=== PATIENT | male | born 1965 | race American Indian/Alaskan Native ===

== ENCOUNTER 2018-08-08 02:34 | Observation (INO) | payer BC ==
[2018-08-08] MEDS ORDERED: Sodium Chloride 0.9% 1,000 ML ONE (03:08)
[2018-08-08 03:11] LABS: BASO # 0.1 K/uL (0.0-0.2); EOS # 0.1 K/uL (0.0-0.7); LYMPH # 2.5 K/uL (1.0-4.3); LYMPH % 26.9 % (20.0-40.0); MEAN CELL VOLUME 86.6 fL (80.0-94.0); MEAN CORPUSCULAR HEMOGLOBIN 28.4 pg (27.0-31.0); MEAN CORPUSCULAR HGB CONC 32.8 g/dL (33.0-37.0); MEAN PLATELET VOLUME 7.6 fL (7.2-11.7); MONO # 0.9 K/uL (0.0-0.8); MONO % 9.7 % (0.0-10.0); NEUT # 5.7 K/uL (1.8-7.0); NEUT % 61.4 % (50.0-75.0); RBC 5.26 Mil/uL (4.40-5.90); RED CELL DISTRIBUTION WIDTH 13.3 % (11.5-14.5); WHITE BLOOD COUNT 9.2 K/uL (4.8-10.8)
[2018-08-08] MEDS ORDERED: Sodium Chloride 0.9% 1,000 ML IV ONE ×2 (03:11→13:01)
[2018-08-08 03:19] LABS: INR 1.2
[2018-08-08 03:23] LABS: ALB/GLOB RATIO 1.5 (1.0-2.1); ALBUMIN 4.7 g/dL (3.5-5.0); ALT/SGPT 49 U/L (21-72); AST/SGOT 39 U/L (17-59); BLOOD UREA NITROGEN 14 mg/dL (9-20); GFR NON-AFRICAN AMERICAN > 60; LIPASE 144 U/L (23-300)
[2018-08-08] MEDS ORDERED: Morphine 4 MG/ML VIAL IV ONE (04:24)
[2018-08-08] MEDS ORDERED: Morphine 4 MG/ML VIAL ONE (04:54)
[2018-08-08] MEDS ORDERED: Iodixanol 320 MG/ML 100 ML BOTTLE IV ONE (05:03)
--- NOTE | 2018-08-08 05:18 | C.PDOC ---
History Of Present Illness 53 year old male presents to the ED for evaluation of diffuse abdominal pain associated with nausea and vomiting which began around 3 days ago. Patient reports diffuse abdominal pain, but also points to his right lower quadrant. Patient states his last bowel movement was today. Patient reports he has his gallbladder taken out, but this pain feels similar to when he previously needed surgery. Patient has not taken anything for pain. He denies fever, chills. <Jalyn Campos - Last Filed: 08/08/18 06:44> History Per: Patient History/Exam Limitations: no limitations Onset/Duration Of Symptoms: Days (3) Current Symptoms Are (Timing): Still Present Location Of Pain/Discomfort: Diffuse, RLQ Quality Of Discomfort: "Pain" Associated Symptoms: Nausea, Vomiting. denies: Fever, Chills <Jalyn Campos - Last Filed: 08/08/18 06:44> <Blossom Queen - Last Filed: 08/08/18 07:29> Time Seen by Provider: 08/08/18 03:20 Chief Complaint (Nursing): Abdominal Pain Past Medical History Reviewed: Historical Data, Nursing Documentation, Vital Signs Vital Signs: Last Vital Signs Temp 97.9 F 08/08/18 02:39 Pulse 69 08/08/18 05:07 Resp 16 08/08/18 05:07 BP 119/79 08/08/18 05:07 Pulse Ox 97 08/08/18 05:07 - Medical History PMH: Anxiety, Depression, HIV Surgical History: Cholecystectomy Family History: States: Unknown Family Hx - Social History Hx Alcohol Use: Yes Hx Substance Use: No - Immunization History Hx Tetanus Toxoid Vaccination: Yes Hx Influenza Vaccination: Yes Hx Pneumococcal Vaccination: Yes <Jalyn Campos - Last Filed: 08/08/18 06:44> Vital Signs: Last Vital Signs Temp 98 F 08/08/18 06:24 Pulse 67 08/08/18 06:24 Resp 18 08/08/18 06:24 BP 122/89 08/08/18 06:24 Pulse Ox 97 08/08/18 06:44 <Blossom Queen - Last Filed: 08/08/18 07:29> Review Of Systems Constitutional: Negative for: Fever, Chills Gastrointestinal: Positive for: Nausea, Vomiting, Abdominal Pain (diffuse, right lower quadrant ) <Jalyn Campos - Last Filed: 08/08/18 06:44> Physical Exam - Physical Exam Appears: Non-toxic, No Acute Distress Skin: Normal Color, Warm, Dry Head: Atraumatic, Normacephalic Eye(s): bilateral: Normal Inspection Oral Mucosa: Moist Neck: Supple Chest: Symmetrical, No Deformity, No Tenderness Cardiovascular: Rhythm Regular, No Murmur Respiratory: Normal Breath Sounds, No Rales, No Rhonchi, No Wheezing Gastrointestinal/Abdominal: Soft, Tenderness (diffuse ), No Guarding, No Rebound, Other (bowel sounds ) Extremity: Normal ROM, Capillary Refill (less than 2 seconds ) Neurological/Psych: Normal Speech, Normal Cognition <Jalyn Campos - Last Filed: 08/08/18 06:44> ED Course And Treatment - Laboratory Results Result Diagrams: 08/08/18 03:08 08/08/18 03:08 Lab Results: PT 13.0 SECONDS (9.7-12.2) H 08/08/18 03:08 INR 1.2 08/08/18 03:08 APTT 33 SECONDS (21-34) 08/08/18 03:08 Total Bilirubin 0.6 mg/dL (0.2-1.3) 08/08/18 03:08 AST 39 U/L (17-59) 08/08/18 03:08 ALT 49 U/L (21-72) 08/08/18 03:08 Alkaline Phosphatase 78 U/L (38-126) 08/08/18 03:08 Total Protein 7.8 g/dL (6.3-8.3) 08/08/18 03:08 Albumin 4.7 g/dL (3.5-5.0) 08/08/18 03:08 Globulin 3.1 gm/dL (2.2-3.9) 08/08/18 03:08 Albumin/Globulin Ratio 1.5 (1.0-2.1) 08/08/18 03:08 Lipase 144 U/L (23-300) 08/08/18 03:08 O2 Sat by Pulse Oximetry: 97 (on RA) Pulse Ox Interpretation: Normal - CT Scan/US CT A/P Other Rad Studies (CT/US): Read By Radiologist, Radiology Report Reviewed CT/US Interpretation: CT SCAN OF THE ABDOMEN AND PELVIS WITH CONTRAST. CLINICAL HISTORY: Onset of RLQ and lower pelvic pain nausea, diarrhea Eval for appendicitis (Hx). TECHNIQUE: Multiple axial and coronal CT images were obtained through the abdomen and pelvis after administration of intravenous contrast material. COMMENTS: Enlarged appendix measuring 1.4 cm. Impacted appendicolith at the base of the appendix. Surrounding inflammatory fat stranding. Bilateral basilar hypoventilatory pulmonary changes. The liver is of uniform attenuation without mass or defect. There is no intra or extrahepatic biliary ductal dilatation. The spleen is normal. The gallbladder is surgically absent. The pancreas is of normal contour and attenuation characteristics. There is no evidence of adrenal mass. Both kidneys demonstrate prompt and equal nephrograms. The kidneys are normal in size, shape and configuration. There is no evidence of renal or ureteral mass. No renal or ureteral calculi are identified. There is no hydroureter or hydronephrosis. No evidence for appendicitis. There is no bowel wall thickening. No evidence for small or large bowel obstruction. There is no evidence of abdominal ascites or lymphadenopathy. There is no evidence of intrinsic or extrinsic bladder mass. There is no pelvic ascites or lymphadenopathy. Images of the lung bases show no evidence of pleural or parenchymal mass. There are no pleural effusions. The bony structures are free of lytic or blastic lesions. IMPRESSION: Uncomplicated acute appendicitis without perforation or abscess formation. <Jalyn Campos - Last Filed: 08/08/18 06:44> - Laboratory Results Result Diagrams: 08/08/18 03:08 08/08/18 03:08 Lab Results: PT 13.0 SECONDS (9.7-12.2) H 08/08/18 03:08 INR 1.2 08/08/18 03:08 APTT 33 SECONDS (21-34) 08/08/18 03:08 Total Bilirubin 0.6 mg/dL (0.2-1.3) 08/08/18 03:08 AST 39 U/L (17-59) 08/08/18 03:08 ALT 49 U/L (21-72) 08/08/18 03:08 Alkaline Phosphatase 78 U/L (38-126) 08/08/18 03:08 Total Protein 7.8 g/dL (6.3-8.3) 08/08/18 03:08 Albumin 4.7 g/dL (3.5-5.0) 08/08/18 03:08 Globulin 3.1 gm/dL (2.2-3.9) 08/08/18 03:08 Albumin/Globulin Ratio 1.5 (1.0-2.1) 08/08/18 03:08 Lipase 144 U/L (23-300) 08/08/18 03:08 <Blossom Queen - Last Filed: 08/08/18 07:29> Medical Decision Making Medical Decision Making: Progress: Bloodwork, Abdomen XR, CT A/P ordered and reviewed. Morphine IVP, Zofran IVP and IV Fluids given. CT scan reviewed, shows uncomplicated acute appendicitis without perforation or abscess formation. Case discussed with surgical dental assistant, who will evaluate the patient at bedside. <Jalyn Campos - Last Filed: 08/08/18 06:44> Disposition <Jalyn Campos - Last Filed: 08/08/18 06:44> <Blossom Queen - Last Filed: 08/08/18 07:29> - Disposition Forms: [facility] (Czech) - Scribe Statement The provider has reviewed the documentation as recorded by the Scribe (Miri Alexandre) Provider Attestation: All medical record entries made by the Scribe were at my direction and personally dictated by me. I have reviewed the chart and agree that the record accurately reflects my personal performance of the history, physical exam, medical decision making, and the department course for this patient. I have also personally directed, reviewed, and agree with the discharge instructions and disposition. <Jalyn Campos - Last Filed: 08/08/18 06:44> Addendum Addendum: 08/08/18 07:[address] Hilario for admisison to his service - acute appendicitis. <Blossom Queen - Last Filed: 08/08/18 07:29>
[2018-08-08] MEDS ORDERED: Piperacill/Tazo 2.25gm in Dex 2.25 GM/50 ML BAG IVPB STA (06:48)
[2018-08-08] MEDS ORDERED: Piperacillin/Tazobact 3.375 gm 100 ML IVPB ONE ×2 (06:52→11:48)
--- NOTE | 2018-08-08 07:40 | CP.PCM.HP ---
History of Present Illness - History of Present Illness History of Present Illness: SURGERY H&P NOTE FOR DR. CHAUDHARY 53M presents with abdominal pain. Patients state pain started on Wednesday and pain was more generalized. He states the pain has gotten worse and is more localized to the right lower quadrant. He admits to nausea and vomiting. He admits to anorexia. States he has not eaten since yesterday morning. Patient denies fevers, admits to chills. PMH: Depression, bipolar, HIV PSH: Lap Cholecystectomy Social: denies tobacco, admits to alcohol socially, denies illicit drugs Allergies: NKDA Present on Admission - Present on Admission Any Indicators Present on Admission: No Past Patient History - Infectious Disease Hx of Infectious Diseases: None - Past Social History Smoking Status: Never Smoked - HEMATOLOGICAL/ONCOLOGICAL Hx Human Immunodeficiency Virus (HIV): Yes - PSYCHIATRIC Hx Anxiety: Yes Hx Depression: Yes Hx Substance Use: No - SURGICAL HISTORY Hx Cholecystectomy: Yes - ANESTHESIA Hx Anesthesia: Yes Hx Anesthesia Reactions: No Hx Malignant Hyperthermia: No Meds Allergies/Adverse Reactions: Allergies Allergy/AdvReac Type Severity Reaction Status Date / Time No Known Allergies Allergy Unverified 08/08/18 02:44 Physical Exam - Constitutional Appears: Non-toxic, No Acute Distress - Eye Exam Eye Exam: EOMI, PERRL - ENT Exam ENT Exam: Mucous Membranes Moist - Respiratory Exam Respiratory Exam: Clear to Auscultation Bilateral, NORMAL BREATHING PATTERN - Cardiovascular Exam Cardiovascular Exam: REGULAR RHYTHM, +S1, +S2 - GI/Abdominal Exam GI & Abdominal Exam: Rebound, Soft, Tenderness (RLQ). absent: Distended, Firm, Guarding, Rigid - Extremities Exam Extremities exam: Negative for: pedal edema, tenderness - Neurological Exam Neurological exam: Alert, Oriented x3 - Psychiatric Exam Psychiatric exam: Normal Affect, Normal Mood - Skin Skin Exam: Dry, Intact, Normal Color, Warm Results - Vital Signs Recent Vital Signs: Last Vital Signs Temp 98 F 08/08/18 06:24 Pulse 67 08/08/18 06:24 Resp 18 08/08/18 06:24 BP 122/89 08/08/18 06:24 Pulse Ox 97 08/08/18 06:44 - Labs Result Diagrams: 08/08/18 03:08 08/08/18 03:08 Labs: Laboratory Results - last 24 hr 08/08/18 08/08/1819 03:08 03:08 03:08 WBC 9.2 RBC 5.26 Hgb 15.0 Hct 45.5 MCV 86.6 MCH 28.4 MCHC 32.8 L RDW 13.3 Plt Count 207 MPV 7.6 Neut % (Auto) 61.4 Lymph % (Auto) 26.9 Campbell % (Auto) 9.7 Eos % (Auto) 1.0 Baso % (Auto) 1.0 Neut # (Auto) 5.7 Lymph # (Auto) 2.5 Campbell # (Auto) 0.9 H Eos # (Auto) 0.1 Baso # (Auto) 0.1 PT 13.0 H INR 1.2 APTT 33 Sodium 133 Potassium 4.2 Chloride 96 L Carbon Dioxide 29 Anion Gap 12 BUN 14 Creatinine 1.1 Est GFR ( Amer) > 60 Est GFR (Non-Af Amer) > 60 Random Glucose 121 H Calcium 10.0 Phosphorus 3.6 Magnesium 1.9 Total Bilirubin 0.6 AST 39 ALT 49 Alkaline Phosphatase 78 Total Protein 7.8 Albumin 4.7 Globulin 3.1 Albumin/Globulin Ratio 1.5 Lipase 144 Assessment & Plan - Assessment and Plan (Free Text) Assessment: 53M with acute appendicitis Plan: NPO IVF Anti emetic Pain control Antibiotics Plan for OR today in afternoon Discussed with Dr. Yanelis Aggarwal, PGY3
[2018-08-08] MEDS: HYDROmorphone 0.5 mg/0.5 ml ISec IVP PRN ×2 (09:11→17:09)
[2018-08-08] MEDS ORDERED: Bupivacaine 0.5%/Epi 1:200,000 (10 ML SOL) ONE (11:47)
[2018-08-08] MEDS ORDERED: Midazolam 2 MG/2 ML VIAL ONE (12:08)
[2018-08-08] MEDS ORDERED: Propofol 10 mg/ml Inj (20 ML) ONE (12:08)
[2018-08-08] MEDS: TAZO IVPB SCH ×2 (12:15→18:43)
[2018-08-08] MEDS: PIPERACILL IVPB SCH ×2 (12:15→18:43)
[2018-08-08] MEDS: DEX IVPB SCH ×2 (12:15→18:43)
[2018-08-08] MEDS ORDERED: Neostigmine 1:1000 (1 mg/ml) Inj ONE (12:47)
[2018-08-08] MEDS ORDERED: Lactated Ringer's 1,000 ML IV ONE (13:01)
[2018-08-08] MEDS ORDERED: HYDROmorphone 0.5 mg/0.5 ml ISec IVP PRN (13:03)
--- NOTE | 2018-08-08 13:05 | PCM.SURG1 ---
Surgeon's Initial Post Op Note - Surgeon's Notes Surgeon: Dr. Hilario Civil Service Clerk: Dr. Meredith PGY4 Type of Anesthesia: General Endo Pre-Operative Diagnosis: Acute appendicitis Operative Findings: Acute appendicitis Post-Operative Diagnosis: Acute appendicitis Operation Performed: Laparoscopic Appendectomy Specimen/Specimens Removed: appendix Estimated Blood Loss: EBL {In ML}: 5 Blood Products Given: N/A Drains Used: No Drains Post-Op Condition: Good Date of Surgery/Procedure: 08/08/18 Time of Surgery/Procedure: 13:04
--- NOTE | 2018-08-08 14:03 | CT ---
Date of service: 08/08/2018 PROCEDURE: CT abdomen and pelvis 08/08/2018 HISTORY: Right lower quadrant abdominal pain. COMPARISON: None. TECHNIQUE: Contiguous axial images of the abdomen and pelvis performed following intravenous injection of approximately 100 cc Visipaque 320 contrast material. Additional 2D sagittal and coronal reformats generated. Radiation dose: Total exam DLP = 1265.02 mGy-cm. This CT exam was performed using one or more of the following dose reduction techniques: Automated exposure control, adjustment of the mA and/or kV according to patient size, and/or use of iterative reconstruction technique. FINDINGS: LOWER THORAX: Mild passive/dependent type atelectasis both posterior lower lung garcia. Minimal scarring seen in the left region. Heart size within range of normal. No significant pericardial effusion. There is a small hiatal hernia. LIVER: Liver is upper limits of normal/borderline enlarged measuring approximately 19 cm in CC dimension. Mild diffuse fatty hepatic infiltration. No obvious hepatic mass collection or calcification. Portal and splenic veins are opacified. GALLBLADDER AND BILE DUCTS: Cholecystectomy PANCREAS: Pancreas appears unremarkable. SPLEEN: U spleen exhibits normal size and attenuation pattern. Small splenule is seen along the just anterior and inferior to the main body of the spleen. ADRENALS: No adrenal lesions. KIDNEYS AND URETERS: Kidneys demonstrate symmetric no evidence of nephrolithiasis or hydronephrosis. BLADDER: Urinary bladder is incompletely distended. No evidence of intraluminal urinary bladder calculi. REPRODUCTIVE: Unremarkable as visualized. APPENDIX: There are several apparent appendicolith within the proximal/mid appendiceal lumen with wall thickening and surrounding infiltration and probably a small amount of fluid. Findings consistent with acute appendicitis. BOWEL: Evaluation of the bowel is limited due to the lack of oral contrast material. Stomach is incompletely distended with food debris liquid and air. Visualized loops of small bowel exhibit normal contour and caliber. No evidence of acute mechanical small bowel obstruction. Moderate amount of stool seen within the cecum and at ascending colon. The remaining colon is relatively collapsed with slight thick-walled appearance which is felt to be in part due to incomplete distention and possibly some muscular hypertrophy however submucosal fatty deposition secondary to chronic inflammation not excluded. There also appears to be few scattered colonic diverticula. No definitive radiographic evidence of acute diverticulitis seen at this time. PERITONEUM: Unremarkable. No fluid collection. No free air. Small fat containing umbilical hernia. Small bilateral fat containing inguinal hernias. LYMPH NODES: There are multiple small mesenteric lymph nodes with a few scattered retroperitoneal lymph nodes nonspecific. Findings could be reactive. VASCULATURE: Unremarkable. No aortic aneurysm. No aortic atherosclerotic calcification or mural plaque present. BONES: Minor multilevel degenerative spondylosis of the lower thoracic and lumbar spine. There is a small bone island or osteoma proximal left femur. OTHER FINDINGS: None. IMPRESSION: Several appendicoliths within the appendiceal lumen with wall thickening and surrounding infiltration/fluid consistent with acute appendicitis. Borderline hepatomegaly. Borderline hepatomegaly. Mild fatty hepatic infiltration. Cholecystectomy. See above discussion for additional details and findings
--- NOTE | 2018-08-08 14:05 | RAD ---
Date of service: 08/08/2018 HISTORY: Unspecified abdominal pain. Duration of symptoms: Unknown COMPARISON: None available. TECHNIQUE: 1 view obtained. FINDINGS: BOWEL: Normal. No obstruction. No free air. BONES: Normal. OTHER FINDINGS: None. IMPRESSION: Unremarkable study.
[2018-08-08] MEDS: Sodium Chloride 0.9% 1,000 ML IV SCH (14:30)
[2018-08-08 17:20] VITALS: RESP 20
[2018-08-09] MEDS: HYDROmorphone 0.5 mg/0.5 ml ISec IVP PRN
[2018-08-09] MEDS: DEX IVPB SCH ×2 (00:55→06:00)
[2018-08-09] MEDS: PIPERACILL IVPB SCH ×2 (00:55→06:00)
[2018-08-09] MEDS: Sodium Chloride 0.9% 1,000 ML IV SCH ×3 (00:55→11:26)
[2018-08-09] MEDS: TAZO IVPB SCH ×2 (00:55→06:00)
--- NOTE | 2018-08-09 02:14 | OP ---
PROCEDURE DATE: 08/08/2018 SURGEON: Renato Hilario MD ANIMAL BEHAVIORIST: Saranya Meredith DO, PGY-4. PREOPERATIVE DIAGNOSIS: Acute appendicitis. POSTOPERATIVE DIAGNOSIS: Acute appendicitis. PROCEDURE: Laparoscopic appendectomy. INDICATION FOR PROCEDURE: The patient is a 53-year-old male who presented to the hospital with right lower quadrant abdominal pain of three days' duration. On CT scan was found to have acute appendicitis and was taken to the operating room. DESCRIPTION OF PROCEDURE: The patient was placed in the operating table in a supine position. General anesthesia was induced. Time-out was completed verifying the correct patient, procedure, site, and positioning prior to beginning the procedure. The abdomen was prepped and draped in the usual sterile fashion. An incision was made vertically just above the umbilicus. The fascia was elevated and the Veress needle was inserted. The abdomen was then insufflated with carbon dioxide to a pressure of 15 mmHg. The patient tolerated the insufflation well. A 12-mm trocar was then inserted using the Visiport technique. Laparoscope was inserted and the abdomen was inspected. No injuries from initial trocar placement were noted. Under direct visualization, two additional 5-mm trocars were then placed in the following locations; one in the left lower quadrant of the abdomen and additional in the suprapubic region. Care was taken to avoid any injuries to the bladder or inferior epigastric vessels. The table was placed in the Trendelenburg position with the right side elevated. The cecum was gently grasped with an atraumatic grasper and the small bowel gently manipulated away from the region of the appendix. The appendix was visualized and grasped with the atraumatic grasper and the [place] dissector was used to make a window in the mesoappendix right at the base of the appendix. The vascular load for the Endo KIRA stapler was then brought in and used to staple and divide the mesoappendix. The blue load Endo KIRA stapler was then brought in and placed across the base of the appendix and divided. The appendix was placed in the endoscopic retrieval bag and withdrawn from the abdomen. There was no bleeding noted. The right lower quadrant was gently irrigated and there was no evidence of further pathology within the abdomen. Secondary trocars were removed under direct vision. There was no bleeding noted. The laparoscope was withdrawn. The umbilical trocar was removed. The abdomen was lightly collapsed. The 12-mm trocar site, the fascia was closed with an 0-Vicryl suture. The skin of all ports sites was then closed with a subcuticular suture of 4-0 Monocryl and Steri-Strips were applied. The patient tolerated the procedure well and was taken to the postanesthesia care unit in stable condition. Saranya Meredith DO Renato Hilario MD
--- NOTE | 2018-08-09 08:04 | CP.PCM.DIS ---
Provider - Provider Date of Admission: 08/08/18 07:28 Attending physician: Renato Hilario MD Time Spent in preparation of Discharge (in minutes): 40 Diagnosis - Discharge Diagnosis (1) Appendicitis Status: Resolved Priority: High Hospital Course - Lab Results Lab Results: Micro Results 08/08/18 06:30 Blood-Venous Blood Culture - Preliminary NO GROWTH AFTER 24 HOURS 08/08/18 02:00 Blood-Venous Blood Culture - Preliminary NO GROWTH AFTER 24 HOURS Most Recent Lab Values WBC 9.2 K/uL (4.8-10.8) 08/08/18 03:08 RBC 5.26 Mil/uL (4.40-5.90) 08/08/18 03:08 Hgb 15.0 g/dL (12.0-18.0) 08/08/18 03:08 Hct 45.5 % (35.0-51.0) 08/08/18 03:08 MCV 86.6 fL (80.0-94.0) 08/08/18 03:08 MCH 28.4 pg (27.0-31.0) 08/08/18 03:08 MCHC 32.8 g/dL (33.0-37.0) L 08/08/18 03:08 RDW 13.3 % (11.5-14.5) 08/08/18 03:08 Plt Count 207 K/uL (130-400) 08/08/18 03:08 MPV 7.6 fL (7.2-11.7) 08/08/18 03:08 Neut % (Auto) 61.4 % (50.0-75.0) 08/08/18 03:08 Lymph % (Auto) 26.9 % (20.0-40.0) 08/08/18 03:08 Mcnairy % (Auto) 9.7 % (0.0-10.0) 08/08/18 03:08 Eos % (Auto) 1.0 % (0.0-4.0) 08/08/18 03:08 Baso % (Auto) 1.0 % (0.0-2.0) 08/08/18 03:08 Neut # (Auto) 5.7 K/uL (1.8-7.0) 08/08/18 03:08 Lymph # (Auto) 2.5 K/uL (1.0-4.3) 08/08/18 03:08 Mcnairy # (Auto) 0.9 K/uL (0.0-0.8) H 08/08/18 03:08 Eos # (Auto) 0.1 K/uL (0.0-0.7) 08/08/18 03:08 Baso # (Auto) 0.1 K/uL (0.0-0.2) 08/08/18 03:08 PT 13.0 SECONDS (9.7-12.2) H 08/08/18 03:08 INR 1.2 08/08/18 03:08 APTT 33 SECONDS (21-34) 08/08/18 03:08 Sodium 133 mmol/L (132-148) 08/08/18 03:08 Potassium 4.2 mmol/L (3.6-5.2) 08/08/18 03:08 Chloride 96 mmol/L (98-107) L 08/08/18 03:08 Carbon Dioxide 29 mmol/L (22-30) 08/08/18 03:08 Anion Gap 12 (10-20) 08/08/18 03:08 BUN 14 mg/dL (9-20) 08/08/18 03:08 Creatinine 1.1 mg/dL (0.8-1.5) 08/08/18 03:08 Est GFR ( Amer) > 60 08/08/18 03:08 Est GFR (Non-Af Amer) > 60 08/08/18 03:08 Random Glucose 121 mg/dL (75-110) H 08/08/18 03:08 Calcium 10.0 mg/dl (8.6-10.4) 08/08/18 03:08 Phosphorus 3.6 mg/dL (2.5-4.5) 08/08/18 03:08 Magnesium 1.9 mg/dL (1.6-2.3) 08/08/18 03:08 Total Bilirubin 0.6 mg/dL (0.2-1.3) 08/08/18 03:08 AST 39 U/L (17-59) 08/08/18 03:08 ALT 49 U/L (21-72) 08/08/18 03:08 Alkaline Phosphatase 78 U/L (38-126) 08/08/18 03:08 Total Protein 7.8 g/dL (6.3-8.3) 08/08/18 03:08 Albumin 4.7 g/dL (3.5-5.0) 08/08/18 03:08 Globulin 3.1 gm/dL (2.2-3.9) 08/08/18 03:08 Albumin/Globulin Ratio 1.5 (1.0-2.1) 08/08/18 03:08 Lipase 144 U/L (23-300) 08/08/18 03:08 Blood Type B POSITIVE 08/08/18 07:33 Antibody Screen Negative 08/08/18 07:33 - Hospital Course Hospital Course: On admission: 53M presents with abdominal pain. Patients states pain started on Wednesday and pain was more generalized. He states the pain has gotten worse and is more localized to the right lower quadrant. He admits to nausea and vomiting. He admits to anorexia. States he has not eaten since yesterday morning. Patient denies fevers, admits to chills. Hospital course: Patient was admitted for acute appendicitis. Patient underwent laparoscopic appendectomy on 08/08/18. Post-operatively, patient's symptoms was controlled with Tylenol, Dilaudid and Zofran. Patient was treated with Zosyn and NS IV fluids as well. Patient tolerated procedure well without complications. On discharge, patient is eager to go home with no abdominal tenderness, nausea or vomiting, and tolerating diet. Imaging: CT abdomen/pelvis: Several appendicoliths within the appendiceal lumen with wall thickening and surrounding infiltration/fluid consistent with acute appendicitis. Borderline hepatomegaly. Borderline hepatomegaly. Mild fatty hepatic infiltration. Cholecystectomy. Discharge instructions: Please follow up with Dr. Hilario at his office in 1 week by calling his office [phone] to make an appointment. You may take Tylenol or Motrin for your pain Please do not do any heavy lifting for 4 to 6 weeks after your surgery. You have absorbable stitches in place, and you do not need to have them removed. You may shower without any issues. Please continue to take your home medications including Truvada. Discharge Exam - Head Exam Head Exam: ATRAUMATIC, NORMOCEPHALIC - Eye Exam Eye Exam: EOMI, PERRL - ENT Exam ENT Exam: Mucous Membranes Moist - Neck Exam Neck exam: Full Rom - Respiratory Exam Respiratory Exam: NORMAL BREATHING PATTERN - Cardiovascular Exam Cardiovascular Exam: REGULAR RHYTHM - GI/Abdominal Exam GI & Abdominal Exam: Normal Bowel Sounds, Soft Additional comments: incision site clean, dry, intact - Extremities Exam Extremities exam: pedal pulses present - Neurological Exam Neurological exam: Alert, Oriented x3 - Psychiatric Exam Psychiatric exam: Normal Affect, Normal Mood Discharge Plan - Follow Up Plan Condition: IMPROVED Disposition: HOME/ ROUTINE Additional Instructions: Please follow up with Dr. Hilario at his office in 1 week by calling his office [phone] to make an appointment. You may take Tylenol or Motrin for your pain Please do not do any heavy lifting for 4 to 6 weeks after your surgery. You have absorbable stitches in place, and you do not need to have them removed. You may shower without any issues. Please continue to take your home medications. Referrals: Renato Hilario MD [Staff Provider] -
[2018-08-09 08:08] VITALS: BP 115/76; PULSE 89; TEMP 99.4; O2SAT 97
[2018-08-09] MEDS ORDERED: Pneumococcal 23-Valent Vaccine IM ONE (10:00)
--- NOTE | 2018-08-10 21:37 | CARD ---
APPROVED REPORT Date of service: 08/08/2018 EKG Measurement Heart [id number] <Conclusion> Normal sinus rhythm Normal ECG
== END 2018-08-09 13:46 | disposition home or self-care (01) ==
LOC: C.ER 02:34 → C.9E 07:28 → C.9S 10:31 → C.3T 16:51
PROVIDERS: ADMIT Surgery; ATTEND Surgery
DX: K35.80 Unspecified acute appendicitis (principal); B20 Human immunodeficiency virus [HIV] disease
CPT/HCPCS: 44970; 74018; 74177; 80053; 83690; 83735; 84100; 85025; 85610; 85730; 86850; 86900; 87040; 88304; 90732; 93005; 96361; 96365; 96366; 96375; 96376; 99285; G0009; G0378; J1170; J2250; J2270; J2405; J2543; J2704; J2710; J3010; J7030; Q9967